=== PATIENT | male | born 1935 | race Caucasian/White ===

== ENCOUNTER 2016-09-04 15:45 | Emergency (ER) | payer MEDICARE ==
[2016-09-04 15:50] VITALS: BP 140/96
[2016-09-04] MEDS ORDERED: Tetan/Diph/Pertus SYR(Tdap)* 0.5 ML SYR(BOOSTRIX) use SYR IM ONE (17:30)
--- NOTE | 2016-09-04 17:32 | ED ---
Laceration/Wound HPI - HPI Summary HPI Summary: 80 male presents with complaints of a toe njury that caused bleeding that he has been unable to stop due to being on Coumadin. Patient states he had his INR checked a 3 days ago and it was in normal range. States he was walking up his stairs when he cut his step to short and jammed his toe into the step. Denies it twisting or bending, states the tip of the toe jammed into the stair. His toenail got pushed back however is still intact. Has FROM. Has not taken any medications for pain. States bleeding worsens when applying pressure when walking. Attempted to bandage and dress toe however with walking bleeding would still not stop. Did not fall or hit head. Denies numbness/tingling. 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 - History of Current Complaint Stated Complaint: TOE LAC/PT ON BLOOD THINNER Time Seen by Provider: 09/04/16 15:57 Hx Obtained From: Patient, Family/[place] - [facility] Mechanism of Injury: Sharp/Blunt Trauma - blunt Onset/Duration: Sudden Onset Aggravating: Movement Alleviating: Compression Timing: Constant Onset Severity: Mild Current Severity: Mild Pain Intensity: 2 Pain Scale Used: 0-10 Numeric Associated Signs & Symptoms: Bruising Related Hx: Anticoagulat Use - Allergy/Home Medications Allergies/Adverse Reactions: Allergies Allergy/AdvReac Type Severity Reaction Status Date / Time No Known Allergies Allergy Verified 09/04/16 15:52 PMH/Surg Hx/FS Hx/Imm Hx Endocrine/Hematology History: Reports: Hx Anticoagulant Therapy Denies: Hx Diabetes Cardiovascular History: Reports: Hx Hypercholesterolemia, Hx Hypertension, Other Cardiovascular Problems/Disorders - CAD Denies: Hx Pacemaker/ICD Respiratory History: Denies: Hx Asthma Musculoskeletal History: Reports: Hx Arthritis, Hx Orthopedic Injury - Left meniscus repair 2005, Left rotator cuff 1995 Sensory History: Reports: Hx Contacts or Glasses - reading glasses, Hx Glaucoma Denies: Hx Hearing Aid Opthamlomology History: Reports: Hx Contacts or Glasses - reading glasses, Hx Glaucoma Psychiatric History: Denies: Hx Panic Disorder - Surgical History Surgery Procedure, Year, and Place: CABG- 2006, left rotator cuff repair- 1996, left meniscus repair-2005,RT KNEE LIGAMENT REPAIR Hx Anesthesia Reactions: No - Immunization History Date of Tetanus Vaccine: Unk Date of Influenza Vaccine: Fall 2013 Infectious Disease History: No Infectious Disease History: Denies: Traveled Outside the [place] in Last 30 Days - Family History Known Family History: Positive: Cardiac Disease - Social History Alcohol Use: Occasionally Substance Use Type: Reports: None Smoking Status (MU): Former Smoker Type: Cigarettes Length of Time of Smoking/Using Tobacco: 10 years Have You Smoked in the Last Year: No Review of Systems Constitutional: Negative Cardiovascular: Negative Respiratory: Negative Positive: Arthralgia, Myalgia Positive: Other - laceration/bleeding Neurological: Negative All Other Systems Reviewed And Are Negative: Yes Physical Exam Triage Information Reviewed: Yes Vital Signs On Initial Exam: Initial Vitals Temp Pulse Resp BP Pulse Ox 98.4 F 56 16 140/96 97 09/04/16 15:46 09/04/16 15:46 09/04/16 15:46 09/04/16 15:46 09/04/16 15:46 Vital Signs Reviewed: Yes Appearance: Positive: Well-Appearing, No Pain Distress, Well-Nourished Skin: Positive: Warm, Skin Color Reflects Adequate Perfusion, Dry, Other - ecchymosis noted on top of great toe, hematoma/collection of blood. oozing blood around left great toe nail bed/cuticle area. no open lacerations noted or wounds noted. hematoma pressure appears to be oozing through nail bed with gait and pressure. Negative: Cyanosis @ Head/Face: Positive: Normal Head/Face Inspection Eyes: Positive: Normal, Conjunctiva Clear ENT: Positive: Hearing grossly normal Neck: Positive: Supple, Nontender Respiratory/Lung Sounds: Positive: Clear to Auscultation, Breath Sounds Present. Negative: Rales, Rhonchi, Wheezes Cardiovascular: Positive: Normal, RRR, Pulses are Symmetrical in both Upper and Lower Extremities - 2+ pedal b/l. Negative: Murmur, Rub Musculoskeletal: Positive: Normal, Strength/ROM Intact - FROM and normal strength of injured toe and rest of LE b/l., Interruption @, Pain @ - on palpation of anterior left great toe due to soreness and hematoma/collection of blood., Other - no crepitus, step off or obvious deformity.. Negative: Edema Left - minmal to none, Edema Right Neurological: Positive: Normal, Sensory/Motor Intact - sensation intact, Alert, Oriented to Person Place, Time, CN Intact II-III, Reflexes Intact, NV Bundle Intact Distally, Normal Gait - bearing some more weight on right LE to avoid pressure on left great toe due to bleeding. Psychiatric: Positive: Affect/Mood Appropriate AVPU Assessment: Alert Procedures - Laceration/Wound Repair 1 Location: Other - left great toe Description: Irregular - surrounding great toe nail bed, no actual open wound or nal bed Irrigated w/ Saline (ccs): 200 Laceration/Wound Explored: clean, no foreign body removed Closure: Skin Adhesive Sterile Dressing Applied?: Yes - telfa and gauze Diagnostics - Vital Signs Vital Signs Temp Pulse Resp BP Pulse Ox 09/04/16 15:50 98.4 F 56 16 140/96 95 09/04/16 15:46 98.4 F 56 16 140/96 97 - Laboratory Lab Statement: Any lab studies that have been ordered have been reviewed, and results considered in the medical decision making process. Laceration Repair Course/Dx - Course Course Of Treatment: Due to patient preference, HPI, MIRIAM and PE findings an x- ray was not obtained at this time. 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 Patient is aware that an x-ray may be needed in the future if symptoms persist or worsen. Toe was soaked in cleansing solution. Bleeding had subsided until walking around. Skin adhesive was used around nail cuticle/bed to stop bleeing. Dressed appropriately. Bleeding subsided. Instructed to RICE for the next 2 days. Avoid walking and applying a lot of pressure. Follow up with PCP. Return if symptoms persist or worsen. Aware of worsening signs and symptoms. INR not re -checked as patient stated it was checked a ~3 days ago and was in normal range. Tetanus will be updated as patient was unsure of last tetanus shot. - Differential Dx Differental Diagnoses: Avulsion, Fracture, Hematoma, Laceration, Puncture Wound , Other - Clinical Impression Provider Diagnoses: Injury of toenail of left foot, Wound of toenail Discharge - Discharge Plan Condition: Stable Disposition: HOME Patient Education Materials: Skin Adhesive Care (ED) Referrals: Sylvester Hernandez MD [Primary Care Provider] - Additional Instructions: Do not get toe wet for the next 48 hours. Change dressing as desired. Tylenol for pain as needed. Rest, ice, apply compression and elevate to help with swelling and to avoid recurring bleeding. Keep clean and dry. Apply triple antibiotic in 3 days. Watch for signs of infection (redness, increased swelling, discharge, warmth) and seek medical attention promptly if occur. Follow up with PCP. If toe pain is worsening or not improving please seek medical attention for further imaging and evaluation.
== END 2016-09-04 18:02 | disposition home or self-care (01) ==
LOC: ED 15:45
DX: S99.922A Unspecified injury of left foot, initial encounter (principal); Z79.01 Long term (current) use of anticoagulants; Z87.891 Personal history of nicotine dependence; W22.8XXA Striking against or struck by other objects, initial encounter; Y93.89 Activity, other specified; Y92.9 Unspecified place or not applicable
CPT/HCPCS: 90471; 99282

== ENCOUNTER 2017-01-19 08:27 | Day surgery (SDC) | payer MEDICARE ==
[~2017-01-19 08:27] MED LIST: Acetaminophen TAB* 325 MG PO PRN; Buffered Lidocaine 0.9% SYRIN* 5 ML/SYR SYRINGE INTRADERM ONE
[2017-01-19] MEDS ORDERED: Midazolam* 1 MG/ML 5 ML VIAL (5 MG) ONE (10:20)
[2017-01-19 11:47] VITALS: BP 126/59
[2017-01-19] MEDS ORDERED: Proparacaine 0.5% OPHTH.SOL* 15 ML BTL ONE (14:15)
[2017-01-19] MEDS ORDERED: Lidocaine 1% MPF* 2 ML VIAL ONE (14:15)
[2017-01-19] MEDS ORDERED: Phenylephrine 2.5% OPTH.SOL* 2 ML BTL ONE (14:15)
[2017-01-19] MEDS ORDERED: Buffered Lidocaine 0.9% SYRIN* 5 ML/SYR SYRINGE ONE (14:15)
[2017-01-19] MEDS ORDERED: Ketorolac 0.5% OPHTH (NF) 0.5 % 5 ML BTL ONE (14:15)
[2017-01-19] MEDS ORDERED: Cyclopentolate 1% OPTH.SOL* 2 ML BTL ONE (14:15)
[2017-01-19] MEDS ORDERED: Povidone Iodine 5% OPTH* 30 ML BTL ONE (14:15)
[2017-01-19] MEDS ORDERED: Neomycin/Polymy/Dex OPTH.SUSP* MAXITROL 0.1% 5 ML ONE (14:15)
[2017-01-19] MEDS ORDERED: acetaZOLAMIDE TAB* 250 MG ONE (14:15)
[2017-01-19] MEDS ORDERED: Lidocaine 2% EPI 1:200000 MPF* 20 ML VIAL ONE (14:15)
--- NOTE | 2017-01-20 02:47 | OP ---
DATE OF OPERATION: 01/19/17 - [facility] DATE OF : 35 SURGEON: Carlos Salvador M.D. PREOPERATIVE DIAGNOSIS: Cataract, left eye. POSTOPERATIVE DIAGNOSIS: Cataract, left eye. OPERATIVE PROCEDURE: Phacoemulsification, left eye, with IOL and iStent. DESCRIPTION OF PROCEDURE: The patient was brought to the operating room after being given 1/2% Alcaine with epinephrine drops in the preoperative area. The eye was prepped and draped in the usual sterile fashion. Sterile drape and eyelid speculum were placed. Again, topical 1/2% Alcaine with epinephrine was given. A paracentesis incision was made at the 3 o'clock position with the No.75 blade. Clear cornea incision 2.2 x 2.2-mm was created at the 6 o'clock position starting at the anterior limbus using the 2.2-mm keratome. The anterior chamber was irrigated with 0.4 mL of 1% non-preservative intracameral lidocaine and filled with DisCoVisc. A capsulorrhexis was completed using the cystotome and the Utrata forceps. Hydrodissection was performed with balanced salt solution. The lens nucleus was removed with the Phacoemulsification handpiece without incident. Cortex was removed with the irrigation-aspiration handpiece. The capsular bag was re-inflated using DisCoVisc, and an [id number] inserted with the shooter followed by an iStent [id number] inserted with its shooter into the 3 o'clock position trabecular meshwork. The irrigation- aspiration handpiece was used to remove all residual DisCoVisc. The eye was refilled with balanced salt solution and the wound checked and found to be watertight. Topical Maxitrol drops were given. [id number]/[facility] #: [id number] MTDD
== END 2017-01-19 11:37 | disposition home or self-care (01) ==
LOC: OREAST 08:27
PROVIDERS: ATTEND Specialist
DX: H25.12 Age-related nuclear cataract, left eye (principal); H40.1132 Primary open-angle glaucoma, bilateral, moderate stage; Z87.891 Personal history of nicotine dependence; I10 Essential (primary) hypertension; Z95.1 Presence of aortocoronary bypass graft; Z79.01 Long term (current) use of anticoagulants
CPT/HCPCS: A9270-GY; J2250; V2632

== ENCOUNTER 2018-01-29 10:52 | Emergency (ER) | payer MEDICARE ==
[2018-01-29] MEDS ORDERED: Oxymetazoline 0.05% NASAL SPR* 15 ML BTL ONE (11:08)
--- NOTE | 2018-01-29 11:08 | ED ---
Throat Pain/Nasal Congestion - HPI Summary HPI Summary: This patient is a 82 year old M brought in by EMS to [facility] with a chief complaint of epistaxis since 989 this morning. Pt states today after he blew his nose he began having right sides epistaxis. Since then it has gotten worse with epistaxis bilaterally and draining down his throat. The patient rates the pain 0/10 in severity. Pt is on warfarin and has been since his CABG. He states he gets nosebleeds often but this one is worse than usual. He is unsure of his last INR level. Pt denies trauma. He packed his nostrils with toilet paper and upon removal there was very minor bleeding from the right nare. - History of Current Complaint Time Seen by Provider: 01/29/18 10:58 Hx Obtained From: Patient Onset/Duration: Lasting Hours, Still Present Severity: Severe Associated Signs And Symptoms: Positive: Nasal Discharge - blood Related History: Other (Noted In Comments) - epistaxis - Allergies/Home Medications Allergies/Adverse Reactions: Allergies Allergy/AdvReac Type Severity Reaction Status Date / Time No Known Allergies Allergy Verified 01/19/17 09:16 PMH/Surg Hx/FS Hx/Imm Hx Endocrine/Hematology History: Reports: Hx Anticoagulant Therapy Denies: Hx Diabetes Cardiovascular History: Reports: Hx Coronary Artery Disease - CABG, Hx Hypercholesterolemia, Hx Hypertension, Other Cardiovascular Problems/Disorders - CAD Denies: Hx Pacemaker/ICD Respiratory History: Denies: Hx Asthma Musculoskeletal History: Reports: Hx Arthritis, Hx Orthopedic Injury - Left meniscus repair 2005, Left rotator cuff 1996 Sensory History: Reports: Hx Cataracts - both, Hx Contacts or Glasses - reading glasses, Hx Glaucoma Denies: Hx Hearing Aid Opthamlomology History: Reports: Hx Cataracts - both, Hx Contacts or Glasses - reading glasses, Hx Glaucoma Psychiatric History: Denies: Hx Panic Disorder - Cancer History Hx Chemotherapy: No - Surgical History Surgery Procedure, Year, and Place: CABG- 2006, left rotator cuff repair- 1996, left meniscus repair-2005,RT KNEE LIGAMENT REPAIR Hx Anesthesia Reactions: No - Immunization History Date of Tetanus Vaccine: Unk Date of Influenza Vaccine: Fall 2013 - Family History Known Family History: Positive: Cardiac Disease - Social History Alcohol Use: Occasionally Substance Use Type: Reports: None Smoking Status (MU): Former Smoker Type: Cigarettes Amount Used/How Often: smoked for 10 years 1 ppd Length of Time of Smoking/Using Tobacco: 10 years Have You Smoked in the Last Year: No Review of Systems Constitutional: Negative - trauma Negative: Fever Positive: Epistaxis All Other Systems Reviewed And Are Negative: Yes Physical Exam - Summary Physical Exam Summary: Appearance: Well appearing, no pain distress Skin: warm, dry, reflects adequate perfusion Head/face: normal Eyes: EOMI, TOYA ENT: bleeding through bilateral nares Neck: supple, non-tender Respiratory: CTA, breath sounds present Cardiovascular: RRR, pulses symmetrical Abdomen: non-tender, soft Bowel: present Musculoskeletal: normal, strength/ROM intact Neuro: normal, sensory motor intact, A&Ox3 Triage Information Reviewed: Yes Vital Signs Reviewed: Yes Procedures - Procedure Summary Procedure Summary: Nasal thrombin spray was used in both nostrils with good hemostasis Diagnostics - Laboratory Result Diagrams: 01/29/18 11:49 01/29/18 11:49 Lab Statement: Any lab studies that have been ordered have been reviewed, and results considered in the medical decision making process. EENT Course/Dx - Course Course Of Treatment: This patient presents with epistaxis that began this morning with a hx of epistaxis and blood thinner use. Pt used toilet paper and stopped a majority of the bleeding. Since there is minor bleeding and I dont want to cause unneeded discomfort thrombin spray was used instead of a rhino rocket. This provided good hemostasis. Blood work obtained and INR was checked. Along with thrombin patient was also give afrin nasal spray. Dx epistaxis. Patient will be discharged and follow up from PCP. The patient is agreeable with this plan. - Differential Diagnoses Differential Diagnoses: Epistaxis - Diagnoses Provider Diagnoses: Epistaxis - Critical Care Time Critical Care Time: 30-74 min Discharge - Sign-Out/Discharge Documenting (check all that apply): Patient Departure - Discharge Plan Condition: Stable Disposition: HOME Patient Education Materials: Nosebleed (ED) Referrals: Sylvester Hernandez MD [Primary Care Provider] - 3 Days Additional Instructions: Please return to the emergency room for any new or worsening sx. - Billing Disposition and Condition Condition: STABLE Disposition: Home - Attestation Statements Document Initiated by Scribe: Yes Documenting Scribe: Breezy Fletcher Provider For Whom Scribe is Documenting (Include Credential): Eric Nova MD Scribe Attestation: Breezy Alas , scribed for Eric Nova MD on 01/29/18 at 1323. Scribe Documentation Reviewed: Yes Provider Attestation: The documentation as recorded by the silvianoibBreezy tomlinson accurately reflects the service I personally performed and the decisions made by me, Eric Nova MD
[2018-01-29] MEDS ORDERED: Thrombin 5,000 UNITS* 1 APPLIC KIT - topical use - TOPICAL ONE (11:21)
[2018-01-29 12:02] LABS: ABS Basophils 0 10^3/ul (0-0.2); ABS Eosinophils 0.1 10^3/ul (0-0.6); ABS Lymphocytes 0.9 10^3/ul (1.0-4.8); ABS Monocytes 0.4 10^3/ul (0-0.8); ABS Neutrophils 6.5 10^3/ul (1.5-7.7); ABS Nucleated RBC 0 10^3/ul; Eosinophil % 0.9 % (0-6); Hematocrit 40 % (42-52); Mean Corpuscular HGB Conc 35 g/dl (31-36); Mean Corpuscular Hemoglobin 33 pg (27-31); Mean Corpuscular Volume 96 fL (80-94); Mean Platelet Volume 7.8 fL (7.4-10.4); Nucleated Red Blood Cells % 0; Platelet Count 167 10^3/ul (150-450); Red Cell Distribution Width 13 % (10.5-15); White Blood Count 7.8 10^3/ul (3.5-10.8)
[2018-01-29 12:14] LABS: INR 2.15 (0.77-1.02)
[2018-01-29 12:17] LABS: EGFR Non-African American 65.5 (>60)
[2018-01-29 13:02] VITALS: BP 127/61
== END 2018-01-29 13:00 | disposition home or self-care (01) ==
LOC: ED 10:52
DX: R04.0 Epistaxis (principal); Z79.01 Long term (current) use of anticoagulants
CPT/HCPCS: 36415; 80053; 85025; 85610; 85730; 99282; A9270-GY

== ENCOUNTER 2018-01-31 02:46 | Emergency (ER) | payer MEDICARE ==
--- NOTE | 2018-01-31 02:58 | ED ---
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 Pt was sitting and watching TV when he felt a drip. He states the bleeding began in the L nostril, but is currently bleeding bilaterally. Pt does not see an ENT physician. He is on Warfarin. Pt was seen for epistaxis in [facility] on 01/29/2018. He states these last two episodes have been the worst of any previous nose bleeds. - History of Current Complaint Chief Complaint: EDEpistaxis Hx Obtained From: Patient Onset/Duration: Sudden Onset, Still Present Severity: Severe - Allergies/Home Medications Allergies/Adverse Reactions: Allergies Allergy/AdvReac Type Severity Reaction Status Date / Time No Known Allergies Allergy Verified 01/31/18 02:49 PMH/Surg Hx/FS Hx/Imm Hx Previously Healthy: No Endocrine/Hematology History: Reports: Hx Anticoagulant Therapy Denies: Hx Diabetes Cardiovascular History: Reports: Hx Coronary Artery Disease - CABG, Hx Hypercholesterolemia, Hx Hypertension, Other Cardiovascular Problems/Disorders - CAD Denies: Hx Pacemaker/ICD Respiratory History: Denies: Hx Asthma Musculoskeletal History: Reports: Hx Arthritis, Hx Orthopedic Injury - Left meniscus repair 2005, Left rotator cuff 1996 Sensory History: Reports: Hx Cataracts - both, Hx Contacts or Glasses - reading glasses, Hx Glaucoma Denies: Hx Hearing Aid Opthamlomology History: Reports: Hx Cataracts - both, Hx Contacts or Glasses - reading glasses, Hx Glaucoma Psychiatric History: Denies: Hx Panic Disorder - Cancer History Hx Chemotherapy: No - Surgical History Surgery Procedure, Year, and Place: CABG- 2006, left rotator cuff repair- 1996, left meniscus repair-2005,RT KNEE LIGAMENT REPAIR Hx Anesthesia Reactions: No - Immunization History Date of Tetanus Vaccine: Unk Date of Influenza Vaccine: Fall 2013 Infectious Disease History: No Infectious Disease History: Denies: Traveled Outside the [place] in Last 30 Days - Family History Known Family History: Positive: Cardiac Disease - Social History Occupation: Retired Lives: [facility] Alcohol Use: Occasionally Hx Substance Use: No Substance Use Type: Reports: None Hx Tobacco Use: Yes Smoking Status (MU): Former Smoker Type: Cigarettes Amount Used/How Often: smoked for 10 years 1 ppd Length of Time of Smoking/Using Tobacco: 10 years Have You Smoked in the Last Year: No Review of Systems Negative: Fever Positive: Epistaxis All Other Systems Reviewed And Are Negative: Yes Physical Exam - Summary Physical Exam Summary: Appearance: Well-appearing, Well-nourished, lying in bed comfortable Skin: Warm, dry, no obvious rash Eyes: sclera anicteric, no conjunctival pallor ENT: mucous membranes moist, obvious fresh clots in both nares. Neck: deferred Respiratory: No signs of respiratory distress Cardiovascular: Appears well perfused, pulses are nml Abdomen: deferred Musculoskeletal: Moving all 4 extremities without obvious discomfort Neurological: Awake and alert, mentation is normal, speech is fluent and appropriate Psychiatric: affect is normal, does not appear anxious or depressed Triage Information Reviewed: Yes Vital Signs On Initial Exam: Initial Vitals Temp Pulse Resp BP Pulse Ox 98.3 F 62 16 137/68 92 01/31/18 02:47 01/31/18 02:47 01/31/18 02:47 01/31/18 02:47 01/31/18 02:47 Vital Signs Reviewed: Yes Procedures - Procedure Summary Procedure Summary: After having pt blow large clot out from L nare, a 5.5cm Rhino Rocket inflated with 7 mL of air. Diagnostics - Vital Signs Vital Signs Temp Pulse Resp BP Pulse Ox 01/31/18 02:47 98.3 F 62 16 137/68 92 - Laboratory Result Diagrams: 01/31/18 03:08 Lab Statement: Any lab studies that have been ordered have been reviewed, and results considered in the medical decision making process. Re-Evaluation - Re-Evaluation 1 Re-Evaluation Time: 03:53 Change: Improved Comment: Bleeding has mostly resolved. 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 The bleeding began in the L nostril, but is currently bleeding bilaterally. He is on Warfarin. Pt was seen for epistaxis in [facility] on 2017. After having pt blow large clot out from L nare, a 5.5cm Rhino Rocket inflated with 7 mL of air. Lab work is unremarkable. Upon re-eval, bleeding has mostly ceased. Will discharge home. - Diagnoses Provider Diagnoses: Epistaxis, Warfarin-induced coagulopathy Discharge - Sign-Out/Discharge Documenting (check all that apply): Patient Departure - DC - Discharge Plan Condition: Stable Disposition: HOME Patient Education Materials: Nosebleed (ED) Referrals: Stefan Romero MD [Medical Doctor] - Additional Instructions: The packing will need to be left in for a few days, then taken out in the ENT office. Contact the ENT physician's office for an appointment, ideally . - Billing Disposition and Condition Condition: STABLE Disposition: Home - Attestation Statements Document Initiated by Scribe: Yes Documenting Scribe: Anup Barber Provider For Whom Shanita is Documenting (Include Credential): Dr. Brian Lyn MD Scribe Attestation: Anup Alas, scribed for Dr. Brian Lyn MD on 01/31/18 at 0513. Scribe Documentation Reviewed: Yes Provider Attestation: The documentation as recorded by the Anup hoff accurately reflects the service I personally performed and the decisions made by me, Dr. Brian Lyn MD
[2018-01-31 03:18] LABS: ABS Basophils 0 10^3/ul (0-0.2); ABS Eosinophils 0.1 10^3/ul (0-0.6); ABS Lymphocytes 1.5 10^3/ul (1.0-4.8); ABS Monocytes 0.5 10^3/ul (0-0.8); ABS Neutrophils 3.5 10^3/ul (1.5-7.7); ABS Nucleated RBC 0 10^3/ul; Eosinophil % 2.5 %; Hematocrit 38 % (42-52); Hemoglobin 13.1 g/dl (14.0-18.0); Lymphocyte % 26.2 %; Mean Corpuscular HGB Conc 34 g/dl (31-36); Mean Corpuscular Hemoglobin 33 pg (27-31); Mean Corpuscular Volume 97 fL (80-94); Mean Platelet Volume 7.7 fL (7.4-10.4); Nucleated Red Blood Cells % 0; Platelet Count 166 10^3/ul (150-450); Red Blood Count 3.95 10^6/ul (4.00-5.40); Red Cell Distribution Width 13 % (10.5-15); White Blood Count 5.6 10^3/ul (3.5-10.8)
[2018-01-31 03:23] LABS: INR 2.06 (0.77-1.02)
[2018-01-31 04:04] VITALS: BP 147/75
== END 2018-01-31 04:03 | disposition home or self-care (01) ==
LOC: ED 02:46
DX: R04.0 Epistaxis (principal); Z87.891 Personal history of nicotine dependence; I25.10 Atherosclerotic heart disease of native coronary artery without angina pectoris; Z95.5 Presence of coronary angioplasty implant and graft; Z79.01 Long term (current) use of anticoagulants
CPT/HCPCS: 36415; 85025; 85610; 99282

== ENCOUNTER 2021-08-26 16:59 | Inpatient (IN) ==
[2021-08-26 17:58] LABS: ABS Lymphocytes 2.2 10^3/ul (1.0-4.8); ABS Monocytes 0.8 10^3/ul (0-0.8); ABS Neutrophils 6.3 10^3/ul (1.5-7.7); Eosinophil % 0.5 %; Hematocrit 32 % (42-52); Hemoglobin 10.8 g/dL (14.0-18.0); Lymphocyte % 23.8 %; Mean Corpuscular HGB Conc 34 g/dL (31-36); Mean Corpuscular Hemoglobin 33 pg (27-31); Mean Corpuscular Volume 97 fL (80-94); Mean Platelet Volume 8.2 fL (7.4-10.4); Nucleated Red Blood Cells % 0.1; Platelet Count 174 10^3/uL (150-450); Red Cell Distribution Width 13 % (10-15); White Blood Count 9.4 10^3/uL (3.5-10.8)
[2021-08-26 18:22] LABS: High Sens Troponin Baseline 33 pg/mL (<20)
[2021-08-26 18:34] LABS: ALT 26 U/L (7-52); AST 13 U/L (13-39); Albumin 3.9 g/dL (3.2-5.2); Albumin/Globulin Ratio 1.8 (1-3); Alkaline Phosphatase 25 U/L (35-149); Anion Gap 6 mmol/L (2-11); Blood Urea Nitrogen 59 mg/dL (6-24); C Reactive Protein < 1.00 mg/L (<8.01); CO2 Carbon Dioxide 28 mmol/L (22-32); Calcium 8.9 mg/dL (8.6-10.3); Chloride 108 mmol/L (101-111); Globulin 2.2 g/dL (2-4); Glucose 116 mg/dL (70-100); Potassium 4.1 mmol/L (3.5-5.0); Sodium 142 mmol/L (135-145); Total Protein 6.1 g/dL (6.4-8.9); eGFR CKD-EPI 59.3 (>60)
[2021-08-26 19:31] LABS: High Sensitivity Troponin 1 Hr 35 pg/mL (<20)
[2021-08-26 21:36] LABS: INR 3.09 (0.86-1.15)
[2021-08-27 05:46] LABS: ABS Eosinophils 0.1 10^3/ul (0-0.6); ABS Lymphocytes 1.6 10^3/ul (1.0-4.8); ABS Monocytes 0.6 10^3/ul (0-0.8); ABS Neutrophils 6.9 10^3/ul (1.5-7.7); Eosinophil % 0.7 %; Hematocrit 28 % (42-52); Hemoglobin 9.5 g/dL (14.0-18.0); Lymphocyte % 17.5 %; Mean Corpuscular HGB Conc 34 g/dL (31-36); Mean Corpuscular Hemoglobin 33 pg (27-31); Mean Corpuscular Volume 97 fL (80-94); Mean Platelet Volume 8.5 fL (7.4-10.4); Platelet Count 161 10^3/uL (150-450); Red Blood Count 2.88 10^6 /uL (4.18-5.48); Red Cell Distribution Width 13 % (10-15); White Blood Count 9.2 10^3/uL (3.5-10.8)
[2021-08-27 05:58] LABS: Anion Gap 8 mmol/L (2-11); Blood Urea Nitrogen 49 mg/dL (6-24); CO2 Carbon Dioxide 25 mmol/L (22-32); Calcium 8.9 mg/dL (8.6-10.3); Chloride 111 mmol/L (101-111); Glucose 107 mg/dL (70-100); Potassium 3.9 mmol/L (3.5-5.0); Sodium 144 mmol/L (135-145); eGFR CKD-EPI 61.7 (>60)
[2021-08-27 06:04] LABS: INR 3.04 (0.86-1.15)
[2021-08-27] MEDS ORDERED: Lactated Ringers 1000 ml BAG 1,000 ML IV SCH (07:00)
[2021-08-27] MEDS ORDERED: Pantoprazole VIAL 40 MG VIAL IV SCH ×2 (08:00→21:00)
[2021-08-27] MEDS ORDERED: Perflutren Lipid Microsphere 3 ML VIAL ONE (08:14)
[2021-08-27 08:31] LABS: Folate > 20.00 ng/mL (5.90-24.80)
[2021-08-27 08:32] LABS: Vitamin B12 662 pg/mL (180-914)
[2021-08-27] MEDS ORDERED: Aspirin EC 81 mg TAB.EC (enteric coated) PO SCH (09:00)
[2021-08-27] MEDS ORDERED: Prothrombin Complex Conc. DOSE = Units Factor IX (nine) IV SLOW PU ONE (10:30)
[2021-08-27 12:02] LABS: ABS Eosinophils 0.1 10^3/ul (0-0.6); ABS Lymphocytes 1.6 10^3/ul (1.0-4.8); ABS Monocytes 0.5 10^3/ul (0-0.8); ABS Neutrophils 6.1 10^3/ul (1.5-7.7); Eosinophil % 0.8 %; Hematocrit 26 % (42-52); Lymphocyte % 19.6 %; Mean Corpuscular HGB Conc 34 g/dL (31-36); Mean Corpuscular Hemoglobin 34 pg (27-31); Mean Corpuscular Volume 98 fL (80-94); Mean Platelet Volume 7.8 fL (7.4-10.4); Platelet Count 149 10^3/uL (150-450); Red Blood Count 2.67 10^6 /uL (4.18-5.48); Red Cell Distribution Width 13 % (10-15); White Blood Count 8.3 10^3/uL (3.5-10.8)
[2021-08-27 13:08] LABS: INR 1.33 (0.86-1.15)
[2021-08-27] MEDS ORDERED: Midazolam 10 mg/10 ml VIAL 1 mg/ml 10 ml VIAL (10 mg) ONE (14:17)
[2021-08-27] MEDS ORDERED: fentaNYL 100 mcg/2 ml 50 MCG/ML VIAL ONE (14:17)
[2021-08-27] MEDS: PTO: Dorzolamide 2% OPTH (NF) 10 ML BTL BOTH EYES SCH ×2 (16:12→21:13)
[2021-08-27] MEDS: Pantoprazole 80 mg in NS BAG 80 MG/250 ML BAG IV SCH (17:51)
[2021-08-27 20:39] LABS: Hematocrit 26 % (42-52); Hemoglobin 8.5 g/dL (14.0-18.0); Mean Corpuscular HGB Conc 33 g/dL (31-36); Mean Corpuscular Hemoglobin 33 pg (27-31); Mean Corpuscular Volume 98 fL (80-94); Mean Platelet Volume 7.7 fL (7.4-10.4); Platelet Count 144 10^3/uL (150-450); Red Blood Count 2.61 10^6 /uL (4.18-5.48); Red Cell Distribution Width 13 % (10-15)
[2021-08-27] MEDS: Pravastatin 20 mg TAB (NF) PO SCH (21:13)
[2021-08-28] MEDS: Pantoprazole 80 mg in NS BAG 80 MG/250 ML BAG IV SCH ×2 (04:35→15:18)
[2021-08-28 05:35] LABS: Hematocrit 24 % (42-52); Hemoglobin 8.5 g/dL (14.0-18.0); Mean Corpuscular HGB Conc 35 g/dL (31-36); Mean Corpuscular Hemoglobin 34 pg (27-31); Mean Corpuscular Volume 98 fL (80-94); Mean Platelet Volume 7.9 fL (7.4-10.4); Platelet Count 135 10^3/uL (150-450); Red Blood Count 2.48 10^6 /uL (4.18-5.48); Red Cell Distribution Width 13 % (10-15); White Blood Count 7.3 10^3/uL (3.5-10.8)
[2021-08-28 06:17] LABS: Calcium 7.9 mg/dL (8.6-10.3); Magnesium 1.8 mg/dL (1.9-2.7); Potassium 4.3 mmol/L (3.5-5.0); eGFR CKD-EPI 71.2 (>60)
[2021-08-28 06:32] LABS: Ferritin 71.4 ng/mL (24-336)
[2021-08-28] MEDS ORDERED: Magnesium Sulfate 2 gm BAG 2 GM/50 ML BAG IVPB ONE (06:43)
[2021-08-28] MEDS: PTO: Dorzolamide 2% OPTH (NF) 10 ML BTL BOTH EYES SCH ×2 (09:18→20:31)
[2021-08-28 11:57] LABS: Hematocrit 26 % (42-52); Hemoglobin 8.7 g/dL (14.0-18.0); Mean Corpuscular HGB Conc 34 g/dL (31-36); Mean Corpuscular Hemoglobin 33 pg (27-31); Mean Corpuscular Volume 98 fL (80-94); Mean Platelet Volume 7.6 fL (7.4-10.4); Platelet Count 144 10^3/uL (150-450); Red Blood Count 2.66 10^6 /uL (4.18-5.48); Red Cell Distribution Width 13 % (10-15); White Blood Count 7.6 10^3/uL (3.5-10.8)
[2021-08-28] MEDS ORDERED: Bismuth Subsalicylate (BTL) 525 MG/30 ML (BULK BTL) PO SCH (17:00)
[2021-08-28] MEDS: Pravastatin 20 mg TAB (NF) PO SCH (20:28)
[2021-08-29] MEDS: Pantoprazole 80 mg in NS BAG 80 MG/250 ML BAG IV SCH ×2 (01:59→12:51)
[2021-08-29 06:54] LABS: ABS Eosinophils 0.1 10^3/ul (0-0.6); ABS Lymphocytes 1.8 10^3/ul (1.0-4.8); ABS Monocytes 0.4 10^3/ul (0-0.8); ABS Neutrophils 5.9 10^3/ul (1.5-7.7); Eosinophil % 1.7 %; Hematocrit 26 % (42-52); Lymphocyte % 21.2 %; Mean Corpuscular HGB Conc 35 g/dL (31-36); Mean Corpuscular Hemoglobin 34 pg (27-31); Mean Corpuscular Volume 98 fL (80-94); Mean Platelet Volume 7.7 fL (7.4-10.4); Nucleated Red Blood Cells % 0.1; Platelet Count 144 10^3/uL (150-450); Red Blood Count 2.65 10^6 /uL (4.18-5.48); Red Cell Distribution Width 13 % (10-15); White Blood Count 8.3 10^3/uL (3.5-10.8)
[2021-08-29 07:46] LABS: Calcium 8.3 mg/dL (8.6-10.3); Potassium 4.2 mmol/L (3.5-5.0); eGFR CKD-EPI 65.1 (>60)
[2021-08-29] MEDS: PTO: Dorzolamide 2% OPTH (NF) 10 ML BTL BOTH EYES SCH ×2 (09:22→21:38)
[2021-08-29 11:10] LABS: Magnesium 1.8 mg/dL (1.9-2.7)
[2021-08-29] MEDS ORDERED: Magnesium Sulfate 2 gm BAG 2 GM/50 ML BAG IVPB ONE (11:26)
[2021-08-29] MEDS: Pravastatin 20 mg TAB (NF) PO SCH (21:37)
[2021-08-30] MEDS: Pantoprazole 80 mg in NS BAG 80 MG/250 ML BAG IV SCH ×3 (00:25→14:20)
[2021-08-30 08:14] LABS: ABS Eosinophils 0.1 10^3/ul (0-0.6); ABS Lymphocytes 1.7 10^3/ul (1.0-4.8); ABS Monocytes 0.5 10^3/ul (0-0.8); ABS Neutrophils 6.6 10^3/ul (1.5-7.7); Eosinophil % 1.5 %; Hematocrit 26 % (42-52); Hemoglobin 9.4 g/dL (14.0-18.0); Lymphocyte % 18.8 %; Mean Corpuscular HGB Conc 36 g/dL (31-36); Mean Corpuscular Hemoglobin 35 pg (27-31); Mean Corpuscular Volume 99 fL (80-94); Mean Platelet Volume 8.1 fL (7.4-10.4); Platelet Count 151 10^3/uL (150-450); Red Blood Count 2.67 10^6 /uL (4.18-5.48); Red Cell Distribution Width 13 % (10-15); White Blood Count 8.9 10^3/uL (3.5-10.8)
[2021-08-30 08:40] LABS: Calcium 8.2 mg/dL (8.6-10.3); Magnesium 2.1 mg/dL (1.9-2.7); Potassium 4.1 mmol/L (3.5-5.0); eGFR CKD-EPI 64.4 (>60)
[2021-08-30] MEDS: PTO: Dorzolamide 2% OPTH (NF) 10 ML BTL BOTH EYES SCH ×2 (10:22→21:53)
[2021-08-30] MEDS: Pravastatin 20 mg TAB (NF) PO SCH (21:52)
[2021-08-31] MEDS: Pantoprazole 80 mg in NS BAG 80 MG/250 ML BAG IV SCH ×2 (00:12→11:11)
[2021-08-31 06:21] LABS: Hematocrit 28 % (42-52); Hemoglobin 9.5 g/dL (14.0-18.0); Mean Corpuscular HGB Conc 35 g/dL (31-36); Mean Corpuscular Hemoglobin 34 pg (27-31); Mean Corpuscular Volume 99 fL (80-94); Platelet Count 161 10^3/uL (150-450); Red Cell Distribution Width 13 % (10-15); White Blood Count 9.4 10^3/uL (3.5-10.8)
[2021-08-31 06:51] LABS: Calcium 8.3 mg/dL (8.6-10.3); Potassium 4.3 mmol/L (3.5-5.0); eGFR CKD-EPI 55.9 (>60)
[2021-08-31] MEDS: PTO: Dorzolamide 2% OPTH (NF) 10 ML BTL BOTH EYES SCH ×2 (09:11→20:37)
[2021-08-31] MEDS ORDERED: Magnesium Hydroxide LIQ 30 ML UDC PO ONE (09:15)
[2021-08-31] MEDS ORDERED: Senna TAB 8.6 mg TAB PO PRN (09:16)
[2021-08-31] MEDS ORDERED: Magnesium Hydroxide LIQ 30 ML UDC PO PRN (09:17)
[2021-08-31] MEDS: Pantoprazole VIAL 40 MG VIAL IV SCH (20:32)
[2021-08-31] MEDS: Pravastatin 20 mg TAB (NF) PO SCH (20:32)
[2021-08-31] MEDS ORDERED: Pantoprazole 80 mg in NS BAG 80 MG/250 ML BAG IV SCH (21:00)
[2021-09-01 06:48] LABS: Hematocrit 28 % (42-52); Hemoglobin 9.6 g/dL (14.0-18.0); Mean Corpuscular HGB Conc 35 g/dL (31-36); Mean Corpuscular Hemoglobin 34 pg (27-31); Mean Corpuscular Volume 98 fL (80-94); Platelet Count 165 10^3/uL (150-450); Red Cell Distribution Width 14 % (10-15); White Blood Count 8.8 10^3/uL (3.5-10.8)
[2021-09-01 06:59] LABS: Calcium 8.3 mg/dL (8.6-10.3); Potassium 4.9 mmol/L (3.5-5.0); eGFR CKD-EPI 61.7 (>60)
[2021-09-01] MEDS: Pantoprazole VIAL 40 MG VIAL IV SCH (08:15)
[2021-09-01] MEDS: PTO: Dorzolamide 2% OPTH (NF) 10 ML BTL BOTH EYES SCH (08:16)
[2021-09-01] MEDS ORDERED: Polyethylene Glycol 3350 17 GM PACKET PO ONE (09:40)
[2021-09-01 11:50] VITALS: BP 128/51
== END 2021-09-01 16:00 | disposition home or self-care (01) | DRG 384 ==
LOC: ED 16:59 → EDHOLD 16:59 → SUATTDRO 22:45 → MED 08-27 03:21 → SUATTDRO 08-28 10:53
PROVIDERS: ADMIT Internal Medicine; ATTEND Internal Medicine

== ENCOUNTER 2023-10-10 10:47 | Inpatient (IN) ==
[2023-10-10 14:38] LABS: ABS Lymphocytes 1.5 10^3/uL (1.0-4.8); ABS Monocytes 0.8 10^3/uL (0.0-1.1); ABS Neutrophils 7.5 10^3/uL (1.5-7.6); Eosinophil % 0.4 %; Hematocrit 36.7 % (38-53); Hemoglobin 12.8 g/dL (13.2-16.3); Lymphocyte % 15.1 %; Mean Corpuscular Hemoglobin 32.8 pg (27-33); Mean Corpuscular Hgb Conc 34.8 g/dL (31-36); Mean Corpuscular Volume 94.4 fL (80-97); Mean Platelet Volume 7.9 fL (7.5-11.2); Platelet Count 190 10^3/uL (150-450); Red Blood Count 3.89 10^6/uL (4.06-5.63); Red Cell Distribution Width 13.1 % (12-17); White Blood Count 9.9 10^3/uL (3.6-10.2)
[2023-10-10] MEDS: cefTRIAXone 1 gm/50 mL D5W 1 GM/50 ML BAG IV ONE (14:52)
[2023-10-10 15:12] LABS: Albumin 3.9 g/dL (3.2-5.2); Albumin/Globulin Ratio 1.6 (1-3); Calcium 8.5 mg/dL (8.6-10.3); Creatinine, Serum 1.18 mg/dL (0.67-1.17); Globulin 2.4 g/dL (2-4); Potassium 3.8 mmol/L (3.5-5.0); Total Bilirubin 0.9 mg/dL (0.2-1.0); Total Protein 6.3 g/dL (6.4-8.9); eGFR CKD-EPI 59.7 (>60)
[2023-10-10] MEDS: Azithromycin 500 mg/250 ml NS 500 MG/250 ML BAG IVPB ONE (15:33)
[2023-10-10 16:19] LABS: High Sensitivity Troponin 1 Hr 39 pg/mL (<20)
[2023-10-10] MEDS: Furosemide 40 mg/4 ml IV VIAL IV SLOW PU ONE (18:18)
[2023-10-10 18:30] LABS: High Sensitivity Troponin 3 Hr 38 pg/mL (<20)
[2023-10-10 21:20] LABS: Venous Bicarbonate HCO3 25.5 mmol/L (24-28)
[2023-10-10] MEDS ORDERED: Warfarin per PHARMACY **NOTE FOLLOW UP SCH (22:00)
[2023-10-10] MEDS ORDERED: Albuterol HFA INHALER 8 gm MDI INH PRN (22:01)
[2023-10-11 00:39] LABS: INR 2.18 (0.83-1.13)
[2023-10-11] MEDS: [UNRECOGNIZED DRUG - OTHER] BOTH EYES SCH (02:31)
[2023-10-11] MEDS: OPTH BOTH EYES SCH (02:31)
[2023-10-11 05:31] LABS: ABS Eosinophils 0.1 10^3/uL (0.0-0.5); ABS Lymphocytes 1.3 10^3/uL (1.0-4.8); ABS Monocytes 0.9 10^3/uL (0.0-1.1); ABS Nucleated RBC 0.01 10^3/ul; Eosinophil % 0.7 %; Hematocrit 36.3 % (38-53); Hemoglobin 12.4 g/dL (13.2-16.3); Lymphocyte % 12.7 %; Mean Corpuscular Hemoglobin 32.2 pg (27-33); Mean Corpuscular Hgb Conc 34.2 g/dL (31-36); Mean Corpuscular Volume 94.1 fL (80-97); Mean Platelet Volume 7.9 fL (7.5-11.2); Platelet Count 207 10^3/uL (150-450); Red Blood Count 3.86 10^6/uL (4.06-5.63); Red Cell Distribution Width 13.4 % (12-17); White Blood Count 10.4 10^3/uL (3.6-10.2)
[2023-10-11 05:52] LABS: INR 2.29 (0.83-1.13)
[2023-10-11 06:07] LABS: Calcium 8.2 mg/dL (8.6-10.3); Creatinine, Serum 1.24 mg/dL (0.67-1.17); Potassium 3.7 mmol/L (3.5-5.0); eGFR CKD-EPI 56.3 (>60)
[2023-10-11] MEDS: Aspirin EC 81 mg TAB.EC (enteric coated) PO SCH (08:23)
[2023-10-11] MEDS: Nystatin SUSPENSION 100,000 UNITS/ML UDC PO SCH (08:24)
[2023-10-11 10:39] LABS: C Reactive Protein 149.92 mg/L (<8.01)
[2023-10-11] MEDS: cefTRIAXone 1 gm/50 mL D5W 1 GM/50 ML BAG IV SCH (15:43)
[2023-10-11] MEDS: Azithromycin 250 MG in NS 0.9% 250 ml 250 ML IVPB SCH (16:34)
[2023-10-11] MEDS: Warfarin DAILY REMINDER **NOTE FOLLOW UP SCH (20:46)
[2023-10-12] MEDS: Albuterol/Ipratropium NEB.SOL (2.5/0.5 MG) 3 ML NEB.SOLN INH SCH (06:40)
[2023-10-12 06:59] LABS: ABS Lymphocytes 1.1 10^3/uL (1.0-4.8); ABS Monocytes 0.8 10^3/uL (0.0-1.1); ABS Neutrophils 13.6 10^3/uL (1.5-7.6); ABS Nucleated RBC 0.01 10^3/ul; Eosinophil % 0.1 %; Hematocrit 35.3 % (38-53); Hemoglobin 12.4 g/dL (13.2-16.3); Lymphocyte % 7.3 %; Mean Corpuscular Hemoglobin 32.5 pg (27-33); Mean Corpuscular Hgb Conc 35.1 g/dL (31-36); Mean Corpuscular Volume 92.7 fL (80-97); Mean Platelet Volume 8.5 fL (7.5-11.2); Platelet Count 196 10^3/uL (150-450); Red Blood Count 3.81 10^6/uL (4.06-5.63); Red Cell Distribution Width 12.9 % (12-17); White Blood Count 15.6 10^3/uL (3.6-10.2)
[2023-10-12] MEDS ORDERED: Cefepime ADVAN 1 GM in NS 0.9% 50 ML 50 ML IVPB SCH (07:00)
[2023-10-12] MEDS ORDERED: Vancomycin per Pharmacy 1 EA NOTE FOLLOW UP SCH (07:00)
[2023-10-12 07:11] LABS: INR 2.29 (0.83-1.13)
[2023-10-12 07:16] LABS: PCO2 Arterial 27 mmHg (35-45)
[2023-10-12 07:18] LABS: PO2 Arterial 56 mmHg (80-100)
[2023-10-12] MEDS: Furosemide 40 mg/4 ml IV VIAL IV ONE (07:28)
[2023-10-12 07:52] LABS: Creatinine, Serum 1.29 mg/dL (0.67-1.17); Magnesium 1.5 mg/dL (1.9-2.7); Potassium 3.8 mmol/L (3.5-5.0); eGFR CKD-EPI 53.7 (>60)
[2023-10-12] MEDS ORDERED: Zosyn per Pharmacy NOTE FOLLOW UP SCH (09:00)
[2023-10-12] MEDS: Cefepime 1 GM in Dextrose 1 GM/50 ML BAG IV SCH (09:05)
[2023-10-12] MEDS: Piperacillin/Tazobac 3.375 BAG 3.375 GM/100 ML BAG IV ONE (09:52)
[2023-10-12] MEDS: Vancomycin 1,000 MG in NS 0.9% 250 ml 250 ML IVPB ONE (10:37)
[2023-10-12 11:02] LABS: PCO2 Arterial 31 mmHg (35-45); PO2 Arterial 73 mmHg (80-100)
[2023-10-12] MEDS: ZOSYN 3.375 GM Q8H per EXTENDED INFUSION IV SCH (13:16)
[2023-10-12] MEDS: Magnesium Sulf 4 GM/100 ML IV 4,000 MG/100 ML BAG IVPB ONE (17:48)
[2023-10-13 06:25] LABS: ABS Basophils 0.1 10^3/uL (0.0-0.1); ABS Lymphocytes 0.5 10^3/uL (1.0-4.8); ABS Monocytes 0.7 10^3/uL (0.0-1.1); ABS Neutrophils 12.3 10^3/uL (1.5-7.6); Hematocrit 33.4 % (38-53); Hemoglobin 11.6 g/dL (13.2-16.3); Lymphocyte % 3.8 %; Mean Corpuscular Hemoglobin 32.1 pg (27-33); Mean Corpuscular Hgb Conc 34.7 g/dL (31-36); Mean Corpuscular Volume 92.6 fL (80-97); Mean Platelet Volume 8.6 fL (7.5-11.2); Platelet Count 184 10^3/uL (150-450); Red Blood Count 3.61 10^6/uL (4.06-5.63); Red Cell Distribution Width 13.4 % (12-17); White Blood Count 13.6 10^3/uL (3.6-10.2)
[2023-10-13 06:29] LABS: INR 2.54 (0.83-1.13)
[2023-10-13 07:17] LABS: Albumin 3.1 g/dL (3.2-5.2); Albumin/Globulin Ratio 1.3 (1-3); C Reactive Protein 331.41 mg/L (<8.01); Calcium 7.8 mg/dL (8.6-10.3); Creatinine, Serum 1.33 mg/dL (0.67-1.17); Globulin 2.4 g/dL (2-4); Magnesium 2.3 mg/dL (1.9-2.7); Potassium 3.3 mmol/L (3.5-5.0); Total Protein 5.5 g/dL (6.4-8.9); eGFR CKD-EPI 51.7 (>60)
[2023-10-13] MEDS: Vancomycin 1,500 MG in NS 0.9% 250 ml 250 ML IVPB SCH (10:01)
[2023-10-13] MEDS: Potassium Chlor 20 meq TAB.ER PO SCH (11:16)
[2023-10-13] MEDS: DOXYcycline 100 MG in NS 0.9% 250 ml 250 ML IVPB SCH (19:04)
[2023-10-13] MEDS: Benzocaine/Menthol LOZ MT PRN (19:19)
[2023-10-13] MEDS: guaiFENesin 100 mg/5 ml LIQ unit dose cup PO PRN (21:55)
[2023-10-13] MEDS: Furosemide 40 mg/4 ml IV VIAL IV SLOW PU ONE (23:02)
[2023-10-13] MEDS: Furosemide 40 mg/4 ml IV VIAL ONE (23:09)
[2023-10-13] MEDS: Acetaminophen IV 1 GM/100ML 1,000 MG/100 ML BAG IV PRN (23:41)
[2023-10-13] MEDS: Acetaminophen IV 1 GM/100ML 1,000 MG/100 ML BAG IV ONE (23:45)
[2023-10-14 00:36] LABS: PCO2 Arterial 31 mmHg (35-45); PO2 Arterial 77 mmHg (80-100)
[2023-10-14 00:41] LABS: Urine Appearance Turbid; Urine Bilirubin Negative (Negative); Urine Blood 1+ (Negative); Urine Color Light-Yellow; Urine Glucose Negative (Negative); Urine Ketones Negative (Negative); Urine Nitrite Negative (Negative); Urine Protein Trace (Negative); Urine Specific Gravity 1.013 (1.002-1.030); Urine Urobilinogen Negative (Negative); Urine pH 5.5 (5.0-8.0)
[2023-10-14 00:51] LABS: Urine Bacteria Absent /HPF (Absent); Urine Red Blood Cell 1+(3-5/hpf) /HPF (0-Trace); Urine Squamous Epithelial Cell Present /HPF (Absent); Urine White Blood Cell Absent /HPF (0-Trace)
[2023-10-14] MEDS: methylPREDNISolone SOD SUCC 40 mg/ml 1 ml VIAL IV SCH ×2 (06:31→08:08)
[2023-10-14 07:10] LABS: Venous Bicarbonate HCO3 22.7 mmol/L (24-28)
[2023-10-14 07:16] LABS: ABS Lymphocytes 0.7 10^3/uL (1.0-4.8); ABS Monocytes 0.7 10^3/uL (0.0-1.1); ABS Neutrophils 14.6 10^3/uL (1.5-7.6); ABS Nucleated RBC 0.01 10^3/ul; Hemoglobin 12.1 g/dL (13.2-16.3); Lymphocyte % 4.2 %; Mean Corpuscular Hemoglobin 32.5 pg (27-33); Mean Corpuscular Hgb Conc 34.6 g/dL (31-36); Mean Platelet Volume 8.7 fL (7.5-11.2); Nucleated Red Blood Cells % 0.1 %/100WBC (0.0-0.8); Platelet Count 196 10^3/uL (150-450); Red Blood Count 3.72 10^6/uL (4.06-5.63); Red Cell Distribution Width 13.6 % (12-17)
[2023-10-14 07:22] LABS: INR 2.93 (0.83-1.13)
[2023-10-14] MEDS: Sulfur Hexaflouride MICROSPHR 25 MG VIAL IV ONE (07:42)
[2023-10-14 07:50] LABS: Calcium 7.5 mg/dL (8.6-10.3); Creatinine, Serum 1.39 mg/dL (0.67-1.17); Magnesium 1.9 mg/dL (1.9-2.7); eGFR CKD-EPI 49.1 (>60)
[2023-10-14] MEDS: Furosemide 40 mg/4 ml IV VIAL IV SCH (08:08)
[2023-10-14] MEDS: KCL 20 MEQ/100 ML IVPREMIX 20 MEQ/100 ML BAG IV ONE (08:08)
[2023-10-14] MEDS: Pantoprazole VIAL 40 MG VIAL IV SCH (08:08)
[2023-10-14 08:09] LABS: PCO2 Arterial 30 mmHg (35-45); PO2 Arterial 114 mmHg (80-100)
[2023-10-14] MEDS ORDERED: Piperacillin/Tazobac 3.375 BAG 3.375 GM/100 ML BAG IV ONE (09:21)
[2023-10-14] MEDS ORDERED: cefTRIAXone 1 gm/50 mL D5W 1 GM/50 ML BAG IV SCH (13:00)
[2023-10-14] MEDS: Piperacillin/Tazobac 3.375 BAG 3.375 GM/100 ML BAG IV SCH (14:16)
[2023-10-14] MEDS: Furosemide 40 mg/4 ml IV VIAL IV ONE (14:17)
[2023-10-14] MEDS: Azithromycin 500 mg/250 ml NS 500 MG/250 ML BAG IVPB SCH (16:45)
[2023-10-14 20:59] LABS: Magnesium 1.9 mg/dL (1.9-2.7); Potassium 3.4 mmol/L (3.5-5.0)
[2023-10-15 04:34] LABS: ABS Lymphocytes 0.5 10^3/uL (1.0-4.8); ABS Monocytes 0.3 10^3/uL (0.0-1.1); ABS Neutrophils 13.8 10^3/uL (1.5-7.6); Hematocrit 33.7 % (38-53); Hemoglobin 11.8 g/dL (13.2-16.3); Lymphocyte % 3.2 %; Mean Corpuscular Hemoglobin 32.6 pg (27-33); Mean Corpuscular Hgb Conc 35.1 g/dL (31-36); Mean Platelet Volume 9.1 fL (7.5-11.2); Platelet Count 230 10^3/uL (150-450); Red Blood Count 3.63 10^6/uL (4.06-5.63); Red Cell Distribution Width 13.9 % (12-17); White Blood Count 14.5 10^3/uL (3.6-10.2)
[2023-10-15 04:48] LABS: INR 4.37 (0.83-1.13)
[2023-10-15 05:27] LABS: C Reactive Protein 393.62 mg/L (<8.01); Creatinine, Serum 1.46 mg/dL (0.67-1.17); Potassium 3.7 mmol/L (3.5-5.0); eGFR CKD-EPI 46.3 (>60)
[2023-10-15] MEDS ORDERED: Vancomycin Trough Check NOTE FOLLOW UP ONE (07:30)
[2023-10-15] MEDS: Furosemide 20 mg/2 ml IV VIAL IV SCH (08:21)
[2023-10-15] MEDS: Senna TAB 8.6 mg TAB PO PRN (08:33)
[2023-10-15] MEDS: Polyethylene Glycol 3350 17 GM PACKET PO PRN (08:33)
[2023-10-15] MEDS: Furosemide 20 mg/2 ml IV VIAL IV ONE (12:05)
[2023-10-15 12:49] LABS: Magnesium 2.1 mg/dL (1.9-2.7); Potassium 3.7 mmol/L (3.5-5.0)
[2023-10-15] MEDS: Magnesium Sulfate 2 gm BAG 2 GM/50 ML BAG IVPB ONE ×2 (12:55→12:58)
[2023-10-15 13:02] LABS: TSH Ultra Thyroid Stim Horm 0.7 mcIU/mL (0.34-5.60)
[2023-10-15 14:41] LABS: Phosphorus 3.8 mg/dL (2.5-5.0)
[2023-10-15 16:02] LABS: High Sensitivity Troponin 1 Hr 52 pg/mL (<20)
[2023-10-15] MEDS: Warfarin - No Order Today **NOTE FOLLOW UP ONE (18:48)
[2023-10-16 00:01] LABS: Legionella PCR, Result Negative; Specimen Source SPUTUM
[2023-10-16 04:50] LABS: ABS Lymphocytes 0.4 10^3/uL (1.0-4.8); ABS Monocytes 0.3 10^3/uL (0.0-1.1); ABS Neutrophils 16.5 10^3/uL (1.5-7.6); ABS Nucleated RBC 0.01 10^3/ul; Hematocrit 33.9 % (38-53); Hemoglobin 11.7 g/dL (13.2-16.3); Lymphocyte % 2.5 %; Mean Corpuscular Hemoglobin 31.8 pg (27-33); Mean Corpuscular Hgb Conc 34.4 g/dL (31-36); Mean Corpuscular Volume 92.4 fL (80-97); Mean Platelet Volume 8.6 fL (7.5-11.2); Nucleated Red Blood Cells % 0.1 %/100WBC (0.0-0.8); Platelet Count 309 10^3/uL (150-450); Red Blood Count 3.67 10^6/uL (4.06-5.63); Red Cell Distribution Width 13.9 % (12-17); White Blood Count 17.3 10^3/uL (3.6-10.2)
[2023-10-16 05:07] LABS: INR 5.05 (0.83-1.13)
[2023-10-16 05:29] LABS: Calcium 8.1 mg/dL (8.6-10.3); Creatinine, Serum 1.4 mg/dL (0.67-1.17); Magnesium 2.4 mg/dL (1.9-2.7); Phosphorus 3.7 mg/dL (2.5-5.0); Potassium 3.6 mmol/L (3.5-5.0); eGFR CKD-EPI 48.6 (>60)
[2023-10-16] MEDS: Potassium Chlor 20 meq TAB.ER PO ONE (08:08)
[2023-10-16 08:34] LABS: C Reactive Protein 237.97 mg/L (<8.01)
[2023-10-16] MEDS: Sulfur Hexaflouride MICROSPHR 25 MG VIAL IV ONE (09:10)
[2023-10-16] MEDS: Phytonadione Oral Solution 5 MG/25 ML UDC PO ONE (10:44)
[2023-10-16] MEDS: Warfarin - No Order Today **NOTE FOLLOW UP ONE (17:06)
[2023-10-17 04:45] LABS: ABS Lymphocytes 0.6 10^3/uL (1.0-4.8); ABS Monocytes 0.4 10^3/uL (0.0-1.1); ABS Neutrophils 10.8 10^3/uL (1.5-7.6); Hematocrit 30.6 % (38-53); Hemoglobin 10.2 g/dL (13.2-16.3); Mean Corpuscular Hemoglobin 31.2 pg (27-33); Mean Corpuscular Hgb Conc 33.4 g/dL (31-36); Mean Corpuscular Volume 93.6 fL (80-97); Mean Platelet Volume 8.4 fL (7.5-11.2); Platelet Count 275 10^3/uL (150-450); Red Blood Count 3.27 10^6/uL (4.06-5.63); Red Cell Distribution Width 14.2 % (12-17); White Blood Count 11.9 10^3/uL (3.6-10.2)
[2023-10-17 04:49] LABS: INR 3.98 (0.83-1.13)
[2023-10-17 05:56] LABS: Creatinine, Serum 1.25 mg/dL (0.67-1.17); Magnesium 2.2 mg/dL (1.9-2.7); Phosphorus 3.5 mg/dL (2.5-5.0); Potassium 4.3 mmol/L (3.5-5.0); eGFR CKD-EPI 55.7 (>60)
[2023-10-17] MEDS: Albuterol/Ipratropium NEB.SOL (2.5/0.5 MG) 3 ML NEB.SOLN INH SCH (06:53)
[2023-10-17] MEDS: methylPREDNISolone SOD SUCC 40 mg/ml 1 ml VIAL IV SCH (07:44)
[2023-10-17 10:39] LABS: Erythrocyte Sed Rate 78 mm/Hr (0-19)
[2023-10-17] MEDS: Warfarin - No Order Today **NOTE FOLLOW UP ONE (20:23)
[2023-10-18 05:44] LABS: INR 3.2 (0.83-1.13)
[2023-10-18 05:59] LABS: Hematocrit 31.8 % (38-53); Hemoglobin 10.7 g/dL (13.2-16.3); Mean Corpuscular Hemoglobin 31.8 pg (27-33); Mean Corpuscular Hgb Conc 33.7 g/dL (31-36); Mean Corpuscular Volume 94.3 fL (80-97); Mean Platelet Volume 8.5 fL (7.5-11.2); Platelet Count 305 10^3/uL (150-450); Red Blood Count 3.37 10^6/uL (4.06-5.63); Red Cell Distribution Width 13.9 % (12-17); White Blood Count 11.5 10^3/uL (3.6-10.2)
[2023-10-18 06:29] LABS: Albumin 2.7 g/dL (3.2-5.2); Albumin/Globulin Ratio 1.3 (1-3); Calcium 7.9 mg/dL (8.6-10.3); Creatinine, Serum 1.17 mg/dL (0.67-1.17); Globulin 2.1 g/dL (2-4); Magnesium 2.1 mg/dL (1.9-2.7); Phosphorus 2.9 mg/dL (2.5-5.0); Potassium 4.1 mmol/L (3.5-5.0); Total Bilirubin 0.7 mg/dL (0.2-1.0); Total Protein 4.8 g/dL (6.4-8.9); eGFR CKD-EPI 60.3 (>60)
[2023-10-18 08:23] LABS: ABS Lymphocytes 0.8 10^3/uL (1.0-4.8); ABS Monocytes 0.4 10^3/uL (0.0-1.1); ABS Neutrophils 10.3 10^3/uL (1.5-7.6); ABS Nucleated RBC 0.01 10^3/ul; Eosinophil % 0.1 %; Lymphocyte % 6.6 %; Nucleated Red Blood Cells % 0.1 %/100WBC (0.0-0.8); RBC Morphology Normal (Normal)
[2023-10-18] MEDS: Morphine 2 MG/ML SYRINGE IV PRN (09:11)
[2023-10-18] MEDS: Furosemide 40 mg/4 ml IV VIAL IV ONE (09:43)
[2023-10-18] MEDS ORDERED: Rocuronium 50 mg VIAL 10 mg/ml 5 ml VIAL (50 mg) ONE (11:18)
[2023-10-18] MEDS ORDERED: Midazolam 10 mg/10 ml VIAL 1 mg/ml 10 ml VIAL (10 mg) ONE (11:18)
[2023-10-18] MEDS ORDERED: Etomidate 40 mg/20 ml (2 MG/ML) 20 ml VIAL (40 mg) ONE (11:18)
[2023-10-18] MEDS: Propofol 10 mg/ml 100 ML BTL 1,000 MG/100 ML BTL IV SCH (11:21)
[2023-10-18] MEDS ORDERED: guaiFENesin 100 mg/5 ml LIQ unit dose cup NG TUBE PRN (11:47)
[2023-10-18] MEDS ORDERED: Senna TAB 8.6 mg TAB NG TUBE PRN (11:47)
[2023-10-18] MEDS ORDERED: Polyethylene Glycol 3350 17 GM PACKET NG TUBE PRN (11:47)
[2023-10-18] MEDS: Rocuronium 50 mg VIAL 10 mg/ml 5 ml VIAL (50 mg) ONE (12:38)
[2023-10-18] MEDS: Phenylephrine 40 mcg/mL 10mL (400mcg) SYRINGE IV PUSH ONE (12:38)
[2023-10-18] MEDS: Chlorhexidine MOUTHWASH 0.12% 15 ML UDC TOPICAL SCH (12:39)
[2023-10-18] MEDS: Norepinephrine 4 MG/250mL D5W 4,000 MCG/250 ML BAG IV SCH (13:03)
[2023-10-18] MEDS: fentaNYL INFUSION 50 mcg/mL VL 2,500 MCG/50 ML VIAL IV SCH (13:03)
[2023-10-18] MEDS: Tranexamic Acid 1,000 MG/10 ML SDV INH SCH ×2 (14:37→15:50)
[2023-10-18] MEDS: Warfarin - No Order Today **NOTE FOLLOW UP ONE (15:14)
[2023-10-18 15:37] LABS: Urine Appearance Clear; Urine Bilirubin Negative (Negative); Urine Blood 1+ (Negative); Urine Color Light-Yellow; Urine Glucose Negative (Negative); Urine Ketones Negative (Negative); Urine Nitrite Negative (Negative); Urine Protein Negative (Negative); Urine Specific Gravity 1.013 (1.002-1.030); Urine Urobilinogen Negative (Negative)
[2023-10-18 15:47] LABS: Urine Bacteria Absent /HPF (Absent); Urine Red Blood Cell 2+(6-10/hpf) /HPF (0-Trace); Urine White Blood Cell Trace(0-5/hpf) /HPF (0-Trace)
[2023-10-18] MEDS: methylPREDNISolone SOD SUCC 40 mg/ml 1 ml VIAL IV SCH (16:50)
[2023-10-19 04:41] LABS: ABS Lymphocytes 0.4 10^3/uL (1.0-4.8); ABS Monocytes 0.2 10^3/uL (0.0-1.1); ABS Neutrophils 10.3 10^3/uL (1.5-7.6); ABS Nucleated RBC 0.01 10^3/ul; Hematocrit 31.7 % (38-53); Hemoglobin 10.9 g/dL (13.2-16.3); Lymphocyte % 3.6 %; Mean Corpuscular Hemoglobin 32.4 pg (27-33); Mean Corpuscular Hgb Conc 34.5 g/dL (31-36); Mean Corpuscular Volume 94.1 fL (80-97); Mean Platelet Volume 8.5 fL (7.5-11.2); Nucleated Red Blood Cells % 0.1 %/100WBC (0.0-0.8); Platelet Count 287 10^3/uL (150-450); Red Blood Count 3.37 10^6/uL (4.06-5.63); Red Cell Distribution Width 13.9 % (12-17); White Blood Count 10.9 10^3/uL (3.6-10.2)
[2023-10-19] MEDS: fentaNYL 100 mcg/2 ml 50 MCG/ML VIAL IV SLOW PU PRN (04:42)
[2023-10-19 04:43] LABS: INR 2.86 (0.83-1.13)
[2023-10-19 05:52] LABS: Calcium 7.9 mg/dL (8.6-10.3); Creatinine, Serum 1.14 mg/dL (0.67-1.17); Magnesium 2.3 mg/dL (1.9-2.7); Potassium 4.4 mmol/L (3.5-5.0); eGFR CKD-EPI 62.2 (>60)
[2023-10-19] MEDS ORDERED: Dextrose 50% Syringe 50 ml 25 GM/50 ML SYRINGE IV PUSH PRN (08:03)
[2023-10-19] MEDS ORDERED: Zosyn per Pharmacy NOTE FOLLOW UP SCH (09:00)
[2023-10-19] MEDS: Piperacillin/Tazobac 3.375 BAG 3.375 GM/100 ML BAG IV SCH (10:37)
[2023-10-19] MEDS: Tranexamic Acid 1,000 MG/10 ML SDV INH SCH ×2 (15:14→16:24)
[2023-10-19] MEDS: Warfarin - No Order Today **NOTE FOLLOW UP ONE (17:55)
[2023-10-20 04:43] LABS: ABS Lymphocytes 0.5 10^3/uL (1.0-4.8); ABS Monocytes 0.3 10^3/uL (0.0-1.1); ABS Neutrophils 12.7 10^3/uL (1.5-7.6); Hematocrit 33.4 % (38-53); Hemoglobin 11.1 g/dL (13.2-16.3); Lymphocyte % 3.6 %; Mean Corpuscular Hemoglobin 31.5 pg (27-33); Mean Corpuscular Hgb Conc 33.2 g/dL (31-36); Mean Corpuscular Volume 94.8 fL (80-97); Mean Platelet Volume 8.4 fL (7.5-11.2); Platelet Count 382 10^3/uL (150-450); Red Blood Count 3.52 10^6/uL (4.06-5.63); Red Cell Distribution Width 14.3 % (12-17); White Blood Count 13.6 10^3/uL (3.6-10.2)
[2023-10-20 04:47] LABS: INR 2.48 (0.83-1.13)
[2023-10-20 05:27] LABS: Calcium 8.3 mg/dL (8.6-10.3); Creatinine, Serum 1.08 mg/dL (0.67-1.17); Magnesium 2.4 mg/dL (1.9-2.7); Potassium 4.6 mmol/L (3.5-5.0); eGFR CKD-EPI 66.4 (>60)
[2023-10-20] MEDS ORDERED: Albuterol/Ipratropium NEB.SOL (2.5/0.5 MG) 3 ML NEB.SOLN INH PRN (16:21)
[2023-10-20] MEDS ORDERED: guaiFENesin 100 mg/5 ml LIQ unit dose cup PO PRN (17:42)
[2023-10-20] MEDS: Warfarin - No Order Today **NOTE FOLLOW UP ONE (19:07)
[2023-10-20] MEDS: Polyethylene Glycol 3350 17 GM PACKET PO SCH (20:45)
[2023-10-21 05:23] LABS: ABS Lymphocytes 0.7 10^3/uL (1.0-4.8); ABS Monocytes 0.2 10^3/uL (0.0-1.1); ABS Neutrophils 12.8 10^3/uL (1.5-7.6); ABS Nucleated RBC 0.01 10^3/ul; Hematocrit 33.2 % (38-53); Hemoglobin 11.2 g/dL (13.2-16.3); Lymphocyte % 5.4 %; Mean Corpuscular Hemoglobin 31.8 pg (27-33); Mean Corpuscular Hgb Conc 33.9 g/dL (31-36); Mean Corpuscular Volume 93.8 fL (80-97); Mean Platelet Volume 8.3 fL (7.5-11.2); Platelet Count 392 10^3/uL (150-450); Red Blood Count 3.54 10^6/uL (4.06-5.63); Red Cell Distribution Width 13.8 % (12-17); White Blood Count 13.8 10^3/uL (3.6-10.2)
[2023-10-21 05:28] LABS: INR 1.92 (0.83-1.13)
[2023-10-21 06:01] LABS: Calcium 7.8 mg/dL (8.6-10.3); Creatinine, Serum 1.06 mg/dL (0.67-1.17); Magnesium 2.1 mg/dL (1.9-2.7); Potassium 4.5 mmol/L (3.5-5.0); eGFR CKD-EPI 67.9 (>60)
[2023-10-21] MEDS ORDERED: Warfarin per PHARMACY **NOTE FOLLOW UP SCH (11:00)
[2023-10-21] MEDS: methylPREDNISolone SOD SUCC 40 mg/ml 1 ml VIAL IV SCH (21:07)
[2023-10-22 07:02] LABS: Hematocrit 33.6 % (38-53); Hemoglobin 11.4 g/dL (13.2-16.3); Mean Corpuscular Hemoglobin 31.9 pg (27-33); Mean Corpuscular Hgb Conc 33.9 g/dL (31-36); Mean Platelet Volume 7.8 fL (7.5-11.2); Platelet Count 398 10^3/uL (150-450); Red Blood Count 3.57 10^6/uL (4.06-5.63); Red Cell Distribution Width 13.8 % (12-17)
[2023-10-22 07:13] LABS: INR 1.59 (0.83-1.13)
[2023-10-22 07:15] LABS: Calcium 7.8 mg/dL (8.6-10.3); Creatinine, Serum 1.05 mg/dL (0.67-1.17); Potassium 4.7 mmol/L (3.5-5.0); eGFR CKD-EPI 68.7 (>60)
[2023-10-22 08:19] LABS: ABS Lymphocytes 0.8 10^3/uL (1.0-4.8); ABS Monocytes 0.4 10^3/uL (0.0-1.1); ABS Neutrophils 12.7 10^3/uL (1.5-7.6); ABS Nucleated RBC 0.02 10^3/ul; Lymphocyte % 6.1 %; Nucleated Red Blood Cells % 0.1 %/100WBC (0.0-0.8)
[2023-10-23 05:58] LABS: Hemoglobin 11.8 g/dL (13.2-16.3); Mean Corpuscular Hemoglobin 31.5 pg (27-33); Mean Corpuscular Hgb Conc 33.7 g/dL (31-36); Mean Corpuscular Volume 93.5 fL (80-97); Mean Platelet Volume 8.1 fL (7.5-11.2); Platelet Count 381 10^3/uL (150-450); Red Blood Count 3.74 10^6/uL (4.06-5.63); Red Cell Distribution Width 13.7 % (12-17); White Blood Count 18.4 10^3/uL (3.6-10.2)
[2023-10-23 06:04] LABS: INR 1.74 (0.83-1.13)
[2023-10-23 06:33] LABS: ABS Basophils 0.1 10^3/uL (0.0-0.1); ABS Lymphocytes 1.1 10^3/uL (1.0-4.8); ABS Monocytes 0.5 10^3/uL (0.0-1.1); ABS Neutrophils 16.8 10^3/uL (1.5-7.6); ABS Nucleated RBC 0.01 10^3/ul; Lymphocyte % 5.7 %
[2023-10-23 06:48] LABS: Calcium 7.9 mg/dL (8.6-10.3); Creatinine, Serum 0.99 mg/dL (0.67-1.17); Potassium 4.5 mmol/L (3.5-5.0); eGFR CKD-EPI 73.7 (>60)
[2023-10-24 06:48] LABS: Hemoglobin 12.1 g/dL (13.2-16.3); Mean Corpuscular Hemoglobin 31.3 pg (27-33); Mean Corpuscular Hgb Conc 33.7 g/dL (31-36); Mean Platelet Volume 7.9 fL (7.5-11.2); Platelet Count 386 10^3/uL (150-450); Red Blood Count 3.87 10^6/uL (4.06-5.63); White Blood Count 21.5 10^3/uL (3.6-10.2)
[2023-10-24 06:54] LABS: INR 2.11 (0.83-1.13)
[2023-10-24 07:10] LABS: Calcium 7.8 mg/dL (8.6-10.3); Creatinine, Serum 1.08 mg/dL (0.67-1.17); Magnesium 1.9 mg/dL (1.9-2.7); Potassium 4.6 mmol/L (3.5-5.0); eGFR CKD-EPI 66.4 (>60)
[2023-10-24 08:09] LABS: ABS Lymphocytes 1.2 10^3/uL (1.0-4.8); ABS Monocytes 0.5 10^3/uL (0.0-1.1); ABS Neutrophils 19.8 10^3/uL (1.5-7.6); ABS Nucleated RBC 0.02 10^3/ul; Eosinophil % 0.1 %; Lymphocyte % 5.4 %; Nucleated Red Blood Cells % 0.1 %/100WBC (0.0-0.8)
[2023-10-24] MEDS: methylPREDNISolone SOD SUCC 40 mg/ml 1 ml VIAL IV SCH (08:28)
[2023-10-24] MEDS: Furosemide 20 mg/2 ml IV VIAL IV ONE (10:56)
[2023-10-24] MEDS: cefTRIAXone 1 gm/50 mL D5W 1 GM/50 ML BAG IV SCH (18:06)
[2023-10-25 05:59] LABS: Hematocrit 38.5 % (38-53); Hemoglobin 12.9 g/dL (13.2-16.3); Mean Corpuscular Hemoglobin 31.2 pg (27-33); Mean Corpuscular Hgb Conc 33.4 g/dL (31-36); Mean Corpuscular Volume 93.4 fL (80-97); Mean Platelet Volume 7.8 fL (7.5-11.2); Platelet Count 375 10^3/uL (150-450); Red Blood Count 4.12 10^6/uL (4.06-5.63); Red Cell Distribution Width 13.9 % (12-17); White Blood Count 22.4 10^3/uL (3.6-10.2)
[2023-10-25 06:03] LABS: INR 2.28 (0.83-1.13)
[2023-10-25 06:17] LABS: ABS Basophils 0.1 10^3/uL (0.0-0.1); ABS Eosinophils 0.1 10^3/uL (0.0-0.5); ABS Lymphocytes 2.3 10^3/uL (1.0-4.8); ABS Monocytes 0.9 10^3/uL (0.0-1.1); ABS Nucleated RBC 0.02 10^3/ul; Eosinophil % 0.3 %; Lymphocyte % 10.5 %; Nucleated Red Blood Cells % 0.1 %/100WBC (0.0-0.8)
[2023-10-25 06:24] LABS: Creatinine, Serum 0.97 mg/dL (0.67-1.17); Potassium 4.1 mmol/L (3.5-5.0); eGFR CKD-EPI 75.6 (>60)
[2023-10-25] MEDS: Furosemide 20 mg/2 ml IV VIAL IV ONE (11:34)
[2023-10-26 05:36] LABS: INR 2.53 (0.85-1.14)
[2023-10-26 06:33] LABS: Creatinine, Serum 0.99 mg/dL (0.67-1.17); Magnesium 1.9 mg/dL (1.9-2.7); eGFR CKD-EPI 73.7 (>60)
[2023-10-26 07:41] LABS: Hematocrit 37.5 % (38-53); Hemoglobin 12.7 g/dL (13.2-16.3); Mean Corpuscular Hemoglobin 31.8 pg (27-33); Mean Corpuscular Hgb Conc 33.8 g/dL (31-36); Mean Corpuscular Volume 93.9 fL (80-97); Mean Platelet Volume 8.3 fL (7.5-11.2); Platelet Count 360 10^3/uL (150-450); Red Blood Count 3.99 10^6/uL (4.06-5.63); Red Cell Distribution Width 14.1 % (12-17); White Blood Count 24.1 10^3/uL (3.6-10.2)
[2023-10-26 08:32] LABS: ABS Lymphocytes 2.2 10^3/uL (1.0-4.8); ABS Monocytes 0.8 10^3/uL (0.0-1.1); ABS Neutrophils 21.1 10^3/uL (1.5-7.6); ABS Nucleated RBC 0.01 10^3/ul; Eosinophil % 0.2 %; RBC Morphology Normal (Normal); Smudge Cells Present
[2023-10-27 06:00] LABS: ABS Lymphocytes 1.5 10^3/uL (1.0-4.8); ABS Monocytes 0.6 10^3/uL (0.0-1.1); ABS Neutrophils 18.3 10^3/uL (1.5-7.6); ABS Nucleated RBC 0.01 10^3/ul; Eosinophil % 0.1 %; Hematocrit 36.6 % (38-53); Hemoglobin 12.1 g/dL (13.2-16.3); Lymphocyte % 7.4 %; Mean Platelet Volume 7.8 fL (7.5-11.2); Platelet Count 327 10^3/uL (150-450); Red Blood Count 3.89 10^6/uL (4.06-5.63); Red Cell Distribution Width 14.1 % (12-17); White Blood Count 20.5 10^3/uL (3.6-10.2)
[2023-10-27 06:05] LABS: INR 2.84 (0.85-1.14)
[2023-10-27 06:44] LABS: C Reactive Protein 6.7 mg/L (<8.01); Calcium 7.4 mg/dL (8.6-10.3); Creatinine, Serum 0.92 mg/dL (0.67-1.17); Magnesium 1.9 mg/dL (1.9-2.7); Potassium 3.9 mmol/L (3.5-5.0); eGFR CKD-EPI 80.5 (>60)
[2023-10-27] MEDS: Potassium Chlor 20 meq TAB.ER PO ONE (09:56)
[2023-10-28 06:12] LABS: ABS Lymphocytes 1.5 10^3/uL (1.0-4.8); ABS Monocytes 0.5 10^3/uL (0.0-1.1); Eosinophil % 0.2 %; Hematocrit 34.5 % (38-53); Hemoglobin 11.8 g/dL (13.2-16.3); Lymphocyte % 9.4 %; Mean Corpuscular Hemoglobin 31.9 pg (27-33); Mean Corpuscular Hgb Conc 34.1 g/dL (31-36); Mean Corpuscular Volume 93.5 fL (80-97); Mean Platelet Volume 7.7 fL (7.5-11.2); Platelet Count 270 10^3/uL (150-450); Red Blood Count 3.69 10^6/uL (4.06-5.63); Red Cell Distribution Width 14.3 % (12-17); White Blood Count 16.1 10^3/uL (3.6-10.2)
[2023-10-28 06:22] LABS: INR 2.69 (0.85-1.14)
[2023-10-28 13:50] VITALS: BP 119/67
== END 2023-10-28 16:48 | disposition home health service (06) | DRG 208 ==
LOC: EDHOLD 10:47 → ED 10:47 → SUATTDRO 21:45 → MED 10-11 11:16 → SUATTDRO 10-11 12:59 → ICU 10-13 23:04 → MEDTELE 10-21 11:30
PROVIDERS: ADMIT Internal Medicine; ATTEND Internal Medicine

== ENCOUNTER 2023-11-28 14:14 | Observation (INO) ==
[2023-11-28 15:35] LABS: ABS Lymphocytes 1.2 10^3/uL (1.0-4.8); ABS Monocytes 0.7 10^3/uL (0.0-1.1); ABS Neutrophils 5.2 10^3/uL (1.5-7.6); Eosinophil % 0.5 %; Hematocrit 33.5 % (38-53); Hemoglobin 11.6 g/dL (13.2-16.3); Lymphocyte % 16.9 %; Mean Corpuscular Hemoglobin 32.6 pg (27-33); Mean Corpuscular Hgb Conc 34.5 g/dL (31-36); Mean Corpuscular Volume 94.6 fL (80-97); Mean Platelet Volume 7.7 fL (7.5-11.2); Platelet Count 260 10^3/uL (150-450); Red Blood Count 3.54 10^6/uL (4.06-5.63); Red Cell Distribution Width 15.5 % (12-17); White Blood Count 7.1 10^3/uL (3.6-10.2)
[2023-11-28 16:18] LABS: Albumin 3.8 g/dL (3.2-5.2); Albumin/Globulin Ratio 1.9 (1-3); C Reactive Protein 47.68 mg/L (<8.01); Calcium 8.6 mg/dL (8.6-10.3); Potassium 3.8 mmol/L (3.5-5.0); Total Bilirubin 0.7 mg/dL (0.2-1.0); Total Protein 5.8 g/dL (6.4-8.9); eGFR CKD-EPI 72.8 (>60)
[2023-11-28] MEDS: Furosemide 40 mg/4 ml IV VIAL IV ONE (16:38)
[2023-11-28] MEDS ORDERED: Warfarin per PHARMACY **NOTE FOLLOW UP SCH (21:00)
[2023-11-28 21:27] LABS: INR 1.9 (0.85-1.14)
[2023-11-28 21:30] LABS: Magnesium 1.7 mg/dL (1.9-2.7)
[2023-11-28] MEDS: CMC:Dorzolamide 2% OPTH (NF) 10 ML BTL BOTH EYES SCH (21:47)
[2023-11-28] MEDS ORDERED: Enoxaparin 40 MG/0.4 ML SYR SUBCUT SCH (22:00)
[2023-11-28 23:17] LABS: High Sensitivity Troponin 1 Hr 43 pg/mL (<20)
[2023-11-29 05:22] LABS: ABS Monocytes 0.7 10^3/uL (0.0-1.1); ABS Neutrophils 5.6 10^3/uL (1.5-7.6); Eosinophil % 0.4 %; Hematocrit 31.6 % (38-53); Hemoglobin 11.1 g/dL (13.2-16.3); Lymphocyte % 13.8 %; Mean Corpuscular Hemoglobin 32.7 pg (27-33); Mean Corpuscular Hgb Conc 35.1 g/dL (31-36); Mean Corpuscular Volume 93.2 fL (80-97); Mean Platelet Volume 7.2 fL (7.5-11.2); Platelet Count 248 10^3/uL (150-450); Red Cell Distribution Width 15.4 % (12-17); White Blood Count 7.3 10^3/uL (3.6-10.2)
[2023-11-29 05:31] LABS: INR 1.87 (0.85-1.14)
[2023-11-29 05:50] LABS: Calcium 8.2 mg/dL (8.6-10.3); Magnesium 1.7 mg/dL (1.9-2.7); Phosphorus 4.2 mg/dL (2.5-5.0); Potassium 3.5 mmol/L (3.5-5.0); eGFR CKD-EPI 72.8 (>60)
[2023-11-29 06:11] LABS: Ferritin 113.1 ng/mL (24-336)
[2023-11-29] MEDS: Aspirin EC 81 mg TAB.EC (enteric coated) PO SCH (09:07)
[2023-11-29] MEDS: Furosemide 20 mg/2 ml IV VIAL IV SLOW PU ONE ×2 (09:10→14:58)
[2023-11-29] MEDS: Magnesium Sulfate 2 gm BAG 2 GM/50 ML BAG IVPB ONE (09:15)
[2023-11-29] MEDS: Sulfur Hexaflouride MICROSPHR 25 MG VIAL IV PRN (09:56)
[2023-11-29] MEDS ORDERED: Sulfur Hexaflouride MICROSPHR 25 MG VIAL ONE (13:40)
[2023-11-29] MEDS: Ferric Gluconate IV 250 MG in NS 0.9% 250 ml 200 ML IVPB SCH (17:52)
[2023-11-29] MEDS: Warfarin DAILY REMINDER **NOTE FOLLOW UP SCH (17:55)
[2023-11-29] MEDS: Potassium Chlor 20 meq TAB.ER PO ONE (20:11)
[2023-11-30 06:25] LABS: ABS Eosinophils 0.1 10^3/uL (0.0-0.5); ABS Lymphocytes 1.1 10^3/uL (1.0-4.8); ABS Monocytes 0.8 10^3/uL (0.0-1.1); ABS Neutrophils 5.8 10^3/uL (1.5-7.6); ABS Nucleated RBC 0.01 10^3/ul; Eosinophil % 0.8 %; Hematocrit 31.5 % (38-53); Hemoglobin 11.1 g/dL (13.2-16.3); Lymphocyte % 13.8 %; Mean Corpuscular Hemoglobin 32.8 pg (27-33); Mean Corpuscular Hgb Conc 35.3 g/dL (31-36); Mean Corpuscular Volume 93.1 fL (80-97); Mean Platelet Volume 7.3 fL (7.5-11.2); Nucleated Red Blood Cells % 0.1 %/100WBC (0.0-0.8); Platelet Count 263 10^3/uL (150-450); Red Blood Count 3.39 10^6/uL (4.06-5.63); Red Cell Distribution Width 15.5 % (12-17); White Blood Count 7.8 10^3/uL (3.6-10.2)
[2023-11-30 06:51] LABS: INR 1.88 (0.85-1.14)
[2023-11-30 06:54] LABS: Calcium 8.2 mg/dL (8.6-10.3); Creatinine, Serum 1.14 mg/dL (0.67-1.17); Magnesium 1.9 mg/dL (1.9-2.7); Potassium 3.7 mmol/L (3.5-5.0); eGFR CKD-EPI 62.2 (>60)
[2023-11-30] MEDS: Potassium Chlor 20 meq TAB.ER PO ONE (10:03)
[2023-12-01 06:46] LABS: INR 2.04 (0.85-1.14)
[2023-12-01 10:34] VITALS: BP 125/74
== END 2023-12-01 11:25 | disposition short-term general hospital (02) ==
LOC: ED 14:14 → INTOOBSV 18:05 → EDHOLD 18:05 → MEDTELE 11-29 10:53
PROVIDERS: ADMIT Hospitalist; ATTEND Internal Medicine